=== PATIENT | female | born 1950 | race Caucasian/White ===

== ENCOUNTER 2020-12-20 14:03 | Emergency (ER) | payer MEDICARE, OTHER ==
[~2020-12-20] VITALS: Ht 170.2 cm; Wt 80.0 kg
[2020-12-20 14:05] VITALS: BP 145/70
[2020-12-20] MEDS ORDERED: HYDROcodone/APAP 5/325MG 1 TAB TABLET PO ONE (15:00)
--- NOTE | 2020-12-20 15:07 | RAD ---
EXAM: Right elbow, 3 views. HISTORY: Dog bite. COMPARISON: None. FINDINGS: 3 views of the right elbow are obtained. There is no acute fracture, dislocation or subluxa tion. There is no elbow effusion. There is a soft tissue laceration. No foreign body is seen. IMPRESSION: 1. No acute osseous finding or radiodense foreign body. 2. Right elbow soft tissue laceration. Electronically signed by: Merly Mi MD (12/20/2020 3:04 PM) [facility]
--- NOTE | 2020-12-20 16:00 | PHYS DOC ---
General Adult EDM: Chief Complaint: ANIMAL BITE HPI: HPI: Patient is a 70-year-old female who presents with an animal bite to her right elbow. Patient states that she was petting the neighbors dog over the fence when it bit her on her arm. Bleeding was controlled. Patient states that she contacted the neighbor states that incident occurred and neighbors dog is up-to-date on immunizations. Patient states that she recently had a tetanus vaccination. Patient is rating her pain 8/10. Patient's only history is rheumatoid arthritis. (ALYCE RIVAS APRN) Review of Systems: Review of Systems: Respiratory: Denies cough or shortness of breath Cardiovascular: Denies chest pain or edema Musculoskeletal: Reports right arm pain Integument: Reports dog bite to right arm (ALYCE RIVAS APRN) Current Medications: Current Meds: Current Medications Medications (Trade) Dose Ordered Sig/Argelia Start Time Stop Time Status Last Admin Dose Admin Acetaminophen/ Hydrocodone Bitart (Lortab 5/325) 1 tab 1X ONCE 12/20/20 15:00 12/20/20 15:20 DC 12/20/20 15:38 1 TAB (ALYCE RIVAS APRN) Allergies: Allergies: Allergies Coded Allergies Type Severity Reaction Last Updated Verified No Known Drug Allergies 12/20/20 No (ALYCE RIVAS APRN) Physical Exam: PE: Constitutional: Well developed, well nourished, no acute distress, non-toxic appearance. [] Cardiovascular:Heart rate regular rhythm, no murmur [] Lungs & Thorax: Bilateral breath sounds clear to auscultation [] Skin: Laceration to right elbow Back: No tenderness, no CVA tenderness. [] Extremities: Tenderness to right elbow, ROM intact, no edema. [] Neurologic: Alert and oriented X 3, normal motor function, normal sensory function, no focal deficits noted. [] Psychologic: Affect normal, judgement normal, mood normal. [] (ALYCE RIVAS APRN) Current Patient Data: Vital Signs: Vital Signs Date Time Temp Pulse Resp B/P (MAP) Pulse Ox O2 Delivery O2 Flow Rate FiO2 12/20/20 14:03 98.3 95 16 145/70 (95) 97 Room Air (ALYCE RIVAS APRN) EKG: EKG: [] (ALYCE RIVAS APRN) Radiology/Procedures: Radiology/Procedures: [] (ALYCE RIVAS APRN) Heart Score: C/O Chest Pain: No HEART Score for Chest Pain: HEART Score for Chest Pain Response (Comments) Value History Slighlty/Non-Suspicious 0 Total 0 Risk Factors: Risk Factors: DM, Current or recent (<one month) smoker, HTN, HLP, family history of CAD, obesity. Risk Scores: Score 0 - 3: 2.5% MACE over next 6 weeks - Discharge Home Score 4 - 6: 20.3% MACE over next 6 weeks - Admit for Clinical Observation Score 7 - 10: 72.7% MACE over next 6 weeks - Early Invasive Strategies (ALYCE RIVAS APRN) Course & Med Decision Making: Course & Med Decision Making Pertinent Labs and Imaging studies reviewed. (See chart for details) [] 70-year-old female presents with animal bite to her right elbow. Patient reports that with her neighbors dog that bit her arm. Dog is up-to-date on v accinations. Patient is up-to-date on her tetanus vaccination. Wound was cleaned out. Right elbow x-ray ordered to rule out foreign body or fracture. Elbow x-ray was negative. Hydrocodone given for pain. Patient to keep wound clean and dry. Patient written prescription for Augmentin to prevent infection. Hydrocodone given for pain control at home. Patient instructed to follow-up with her PCP for further management. Patient given strict return precautions. (ALYCE RIVAS APRN) Dragon Disclaimer: Dragon Disclaimer: This electronic medical record was generated, in whole or in part, using a voice recognition dictation system. (ALYCE RIVAS APRN) Attending Co-Sign The patient was seen and interviewed as well as examined at the bedside. The chart was reviewed. The case was discussed. Agree with the plan of care. (VIANEY KILPATRICK DO) Departure Departure: Impression: Primary Impression: Animal bite Disposition: HOME / SELF CARE / HOMELESS Condition: STABLE Referrals: KORINA PARK MD (PCP) Patient Instructions: Animal Bite, [id number], Wound Infection Additional Instructions: You were seen in the emergency room for an animal bite to your right elbow. Your wound was cleaned and you were given pain medication. We also did an x-ray of your right elbow to rule out any fractures or foreign body. The x-ray was negative. I am sending you home with medication for pain control and also an antibiotic to help prevent infection. Please take the antibiotic as directed. Follow-up with your PCP for further management. Please return emergency room with worsening symptoms or concerns. EMERGENCY DEPARTMENT GENERAL DISCHARGE INSTRUCTIONS Thank you for coming to [facility] (ED) today and trusting us with you care. We trust that you had a positivie experience in our Emergency Department. If you wish to speak to the department management, you may call the director at [phone]. YOUR FOLLOW UP INSTRUCTIONS ARE FOLLOWS: 1. Do you have a private Doctor? If you do not have a private doctor, please ask for a resource list of physicians or clinics that may be able to assist you with follow up care. 2. The Emergency Physician has interpreted your x-rays. The X-Ray specialist will also review them. If there is a change in the findings, you will be notified in 48 hours when at all possible. 3. A lab test or culture has been done, your results will be reviewed and you will be notified if you need a change in treatment. ADDITIONAL INSTRUCTIONS AND INFORMATION: 1. Your care today has been supervised by a physician who is specially trained in emergency care. Many problems require more than one evaluation for a complete diagnosis and treatment. We recommend that you schedule your follow up appointment as recommended to ensure complete treatment of you illness or injury. If you are unable to obtain follow up care and continue to have a problem, or if your condition worsens, we recommend that you return to the ED. 2. We are not able to safely determine your condition over the phone nor are we able to give sound medical advice over the phone. For these safety reasons, if you call for medical advice we will ask you to come to the ED for further evaluation. 3. If you have any questions regarding these discharge instructions please call the ED at [phone]. SAFETY INFORMATION: In the interest of safety, wellness, and injury prevention; we encourage you to wear your sealbelt, if you smoke; quite smoking, and we encourage family to use a protective helmet for bicycling and other sporting events that present an increased risk for head injury. IF YOUR SYMPTOMS WORSEN OR NEW SYMPTOMS DEVELOP, OR YOU HAVE CONCERNS ABOUT YOUR CONDITION; OR IF YOUR CONDITION WORSENS WHILE YOU ARE WAITING FOR YOUR FOLLOW UP APPO INTMENT; EITHER CONTACT YOUR PRIMARY CARE DOCTOR, THE PHYSICIAN WHOSE NAME AND NUMBER YOU WERE GIVEN, OR RETURN TO THE ED IMMEDIATELY. Scripts Hydrocodone Bit/Acetaminophen (HYDROCODONE-APAP 5-325 ) 1 Each Tablet 1 TAB PO PRN Q6HRS PRN for PAIN for 3 Days, #12 TAB 0 Refills Prov: ALYCE RIVAS APRN 12/20/20 Amoxicillin/Potassium Clav (AUGMENTIN 875-125 TABLET) 1 Each Tablet 1 TAB PO BID for dog bite for 7 Days, #14 TAB 0 Refills Prov: ALYCE RIVAS APRN 12/20/20 ALYCE RIVAS APRN December 20, 2020 16:00 VIANEY KILPATIRCK DO December 21, 2020 06:37
[2020-12-20] MEDS ORDERED: HYDR-2155 PO (16:02)
[2020-12-20] MEDS ORDERED: AMOX1TAB61 PO (16:02)
[2020-12-20] MEDS ORDERED: AMOXICILLIN/K CLAV 875/125MG TABLET. PO ONE (16:45)
[2020-12-20] MEDS ORDERED: AMOXICILLIN/K CLAV 875/125MG TABLET. ONE (16:45)
[2020-12-20] MEDS ORDERED: NEOMY/BACITR/POLYMYXIN OINT PACKET. TP ONE ×2 (16:45→16:47)
== END 2020-12-20 16:50 | disposition home or self-care (01) ==
LOC: ER 14:03
DX: S51.051A Open bite, right elbow, initial encounter (principal); W54.0XXA Bitten by dog, initial encounter; Y93.89 Activity, other specified; Y92.89 Other specified places as the place of occurrence of the external cause; Y99.8 Other external cause status
CPT/HCPCS: 73080; 99283-25